=== PATIENT | male | born 1940 | race Caucasian/White ===

== ENCOUNTER → 2018-09-22 | Day surgery (SDC) | payer MEDICARE ==
[2018-09-16 13:47] LABS: BASOPHILS # (AUTO) 0.1 (0.0-0.1); BASOPHILS % 0.7 % (0.0-1.0); EOSINOPHILS # (AUTO) 0.1 (0.0-0.4); EOSINOPHILS % 1.4 % (0.0-6.0); HEMATOCRIT 43.7 % (38.2-49.6); HEMOGLOBIN 14.1 g/dL (14.0-18.0); LYMPHOCYTES # (AUTO) 1.1 (1.0-3.2); LYMPHOCYTES % 15.5 % (18.0-39.1); MEAN CORPUSCULAR HEMOGLOBIN 31.4 pg (28-32); MEAN CORPUSCULAR HGB CONC 32.3 g/dL (31-35); MEAN CORPUSCULAR VOLUME 97.3 fL (81-99); MONOCYTES # (AUTO) 0.7 (0.2-0.8); MONOCYTES % 10.1 % (4.4-11.3); NEUTROPHILS # (AUTO) 5.1 (2.1-6.9); PLATELET COUNT 226 x10e3/uL (140-360); RED BLOOD COUNT 4.49 x10e6/uL (4.3-5.7); RED CELL DISTRIBUTION WIDTH 13.8 % (11.7-14.4)
--- NOTE | 2018-09-16 13:49 | Diagnostic Imaging Report ---
EXAMINATION: PA and lateral views of the chest. COMPARISON: None CLINICAL HISTORY: Preoperative evaluation, foot surgery DISCUSSION: Lines/tubes: None. Lungs: Chronic appearing linear opacities in the lung bases likely scarring. No focal pneumonia. No edema. Pleura: There is no pleural effusion or pneumothorax. Heart and mediastinum: The cardiomediastinal silhouette is normal. Bones and soft tissues: No acute bony abnormalities. IMPRESSION: No acute cardiopulmonary abnormalities. Signed by: Dr. Navdeep Koroma M.D. on 09/16/2018 1:46 PM
[~2018-09-22] MED LIST: BACITRACIN 50,000 UNIT VIAL ONE; BUPIVACAINE 0.25% 30ML SDV INJ ONE; CEFAZOLIN SOD 2 GM/D5W 50ML 50 ML IV ONE; DEXAMETHASONE SOD PHOS INJ 4 MG/ML VIAL ONE; FENTANYL CITRATE/PF 100MCG/2 ML INJ ONE; LIDOCAINE HCL 2% LOCAL INJ 5 ML SDV VIAL INJ ONE; MELATONIN1 MG PO; MIDAZOLAM HCL 2 MG/2 ML VIAL ONE; MORPHINE SULFATE INJ 4 MG/ML INJ 1ML ONE; NEOSTIGMINE 1 MG/ML 10ML VIAL ONE; OMEPRAZOLE PO; OMEPRAZOLE40 MG PO; ONDANSETRON HCL INJ 2MG/ML 2ML 2 MG/ML VIAL ONE; PROPOFOL IV EMULSION 10 MG/ML 20 ML VIAL ONE; SEVOFLURANE INHAL SOLN 250 ML PEN BTL ONE; ULTRAM50 MG PO
--- OUTSIDE RECORDS SUMMARY | 2018-09-22 09:57 | XMS REPORT ---
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 Allergies, Adverse Reactions, Alerts This patient has no known allergies or adverse reactions. Medications This patient has no known medications. Results Test Description Test Time Test Comments Text Results Atomic Results Result Comments CHEST 2 VIEWS 2018-09-16 13:44:00 [place] [address] Patient Name: NOEL ARRINGTON MR #: [id number] : 1940 Age/Sex: 78/M Req #: [id number] Adm Physician: Ordered by: TRIP VILLA DPM Report #: [id number] Location: OR Room/Bed: Procedure: [id number] DX/CHEST 2 VIEWS Exam Date: Exam Time: REPORT STATUS: Signed EXAMINATION: PA and lateral views of the chest. COMPARISON: None CLINICAL HISTORY: Preoperative evaluation, foot surgery DISCUSSION: Lines/tubes: None. Lungs: Chronic appearing linear opacities in the lung bases likely scarring. No focal pneumonia. No edema. Pleura: There is no pleural effusion or pneumothorax. Heart and mediastinum: The cardiomediastinal silhouette is normal. Bones and soft tissues: No acute b deacon abnormalities. IMPRESSION: No acute cardiopulmonary abnormalities. Signed by: Dr. Cassidy rBunner M.D. on 09/16/2018 1:46 PM Dictated By: CASSIDY BRUNNER MD [id number] Transcribed By: AMINATA on 09/16/18 1346 COPY TO: TRIP VILLA DPM
[2018-09-22 13:00] VITALS: BP 133/78
--- NOTE | 2018-09-22 13:40 | Operative Report ---
DATE OF PROCEDURE: September 22, 2018 PREOPERATIVE DIAGNOSES 1. Plantarflexed 5th metatarsal. 2. Ulcer grade 2 left 5th plantar 1 cm x 1.5 cm. POSTOPERATIVE DIAGNOSES 1. Plantarflexed 5th metatarsal. 1. Ulcer grade 2 left 5th plantar 1 cm x 1.5 cm. OPERATIONS PERFORMED 1. Fifth metatarsal osteotomy with internal fixation left 5th. 2. Excision of ulcer with application of graft and closure left 5th. PROPAGATOR: None. PATHOLOGY: None. ANESTHESIA: A general anesthetic. HEMOSTASIS: A pneumatic thigh tourniquet. ESTIMATED BLOOD LOSS: Less than 10 mL. MATERIALS 1. A 2.5 x 22 mm Fixos screw. 2. AlloWrap DS wet 2 cm x 2 cm, Lot Number [id number], Reference [id number], expiration December 30, 2019. COMPLICATIONS: None. CONDITION: Stable. PROCEDURE IN DETAIL: Under mild sedation, the patient was brought to the operating room and placed on the operating table in the supine position. Following IV sedation, anesthesia was obtained with a general anesthetic. At this point, the left foot was scrubbed, prepped and draped in the usual aseptic manner. The pneumatic thigh tourniquet was inflated to 350 mmHg, and the leg was lowered to the table. Fifth metatarsal osteotomy. Attention was then directed to the dorsal aspect of the 5th where a linear incision was made overlying the 5th metatarsal. The incision was deepened via sharp and blunt dissection down to the level of the digit and the metatarsal. The linear capsulotomy was then performed. The capsule was then reflected off of the 5th metatarsal. Utilizing the oscillating saw, the prominent lateral aspect of the 5th metatarsal was then removed. At this point, there was still high intermetatarsal angle; so, an osteotomy was performed. The head of the 5th metatarsal was then moved into a more medial position, helping to close the high intermetatarsal angle. It was also translated dorsally in order to dorsiflex the plantarflexed osteotomy. Utilizing standard AO technique, a 2.5 x 22 mm Fixos screw was used. There was noted to be adequate compression clinically and with the use of intraoperative fluoroscopy and adequate alignment. Attention was directed to the plantar aspect of the left foot where two curvilinear incisions around the full-thickness ulcer grade 2 down to the level of the capsule were performed in order to resect the ulcer. The ulcer was removed through and through. At this point, an amniotic graft was then inserted into the area, an AlloWrap wet DS 2 x 2, in order to promote healing and to prevent adhesions to the plantar aspect at the ulcer. All the areas were then flushed with copious amount of normal sterile saline solution. Utilizing standard technique, the capsule was then closed with 3-0 Vicryl and 4-0 Vicryl, and the skin was closed with 4-0 nylon. The tourniquet was deflated. There was noted to be a hyperemic response to all the digits. A clean dressing was applied consisting of Adaptic ointment, 4 x 4's, Kerlix and an David bandage. The patient tolerated the procedure and anesthesia well without complications, was transported to the recovery room with vital signs stable and neurovascular status intact to both feet. Patient will be discharged home once he meets criteria. They were given instructions to be nonweightbearing, to elevate the foot while at rest, to follow up with me in the office and to call the office if any questions, concerns, or any problems arise. Job#: [id number]
== END | disposition home or self-care (01) ==
LOC: OR 09:55
PROVIDERS: ATTEND Podiatrist Foot & Ankle Surgery
DX: M21.272 Flexion deformity, left ankle and toes (principal); M86.8X7 Other osteomyelitis, ankle and foot; K21.9 Gastro-esophageal reflux disease without esophagitis; M19.90 Unspecified osteoarthritis, unspecified site; G47.33 Obstructive sleep apnea (adult) (pediatric); I10 Essential (primary) hypertension; Z01.812 Encounter for preprocedural laboratory examination; Z01.818 Encounter for other preprocedural examination; Z85.51 Personal history of malignant neoplasm of bladder; Z87.891 Personal history of nicotine dependence
CPT/HCPCS: 28043; 28308; 36415; 71046; 76000; 85025; J0690; J1100; J2001; J2250; J2270; J2405; J2704; J2710